=== PATIENT | male | born 1945 | race Two or more races ===

== ENCOUNTER → 2016-08-27 | Outpatient (CLI) | payer OTHER | LOC: BRMIMAGING 11:57 | PROVIDERS: ATTEND Family Medicine | DX: M54.5 Low back pain (principal); M25.551 Pain in right hip; I70.90 Unspecified atherosclerosis | CPT/HCPCS: 72114-PO; 73502-PO ==

== ENCOUNTER 2018-09-18 07:29 | Day surgery (SDC) | payer OTHER | END 2018-09-18 10:45 | LOC: FSGY 07:29 ==